=== PATIENT | female | born 1935 | race Caucasian/White ===

== ENCOUNTER 2019-06-09 17:25 | Emergency (ER) | payer MEDICARE, MEDICAID ==
[2019-06-09] MEDS ORDERED: Adacel (T-DAP) 0.5 ML SYRINGE ONE (17:44)
[2019-06-09 17:56] LABS: #Eosinphils 0.2 thou/uL (0.0-0.7); #Lymphocytes 0.9 thou/uL (1.20-3.40); #Monocytes 0.4 thou/uL (0.11-0.59); #Neutrophils 4.1 thou/uL (1.40-6.50); %Basophils 0.1 % (0.0-1.0); %Lymphocytes 16.3 % (21.0-51.0); %Monocytes 7.2 % (0.0-10.0); %Neutrophils 73.3 % (42.0-75.0); Hemoglobin 12.4 g/dL (12.0-16.0); Mean Corpuscular HGB CONC 31.7 g/dL (32.0-36.0); Mean Corpuscular Hemoglobin 27.2 pg (27.0-31.0); Mean Corpuscular Volume 85.7 fL (78.0-98.0); Mean Platelet Volume 8.6 fL (7.4-10.4); Platelet Count 227 thou/uL (130-400); RBC Distribution Width 13.6 % (11.5-14.5); Red Blood Cell (RBC) Count 4.56 mill/uL (4.20-5.40); White Blood Cell (WBC) Count 5.6 thou/uL (4.8-10.8)
--- NOTE | 2019-06-09 18:04 | CT ---
Head CT without contrast 06/09/2019: HISTORY: Fall, trauma, pain TECHNIQUE: Axial CT imaging at 5 mm intervals from vertex through skull base without contrast FINDINGS: The imaged paranasal sinuses and mastoid air cells are well aerated. No displaced calvarial fracture. Mild diffuse cerebral volume loss. No intracranial hemorrhage, midline shift, mass effect, or ventricular enlargement. IMPRESSION: No intracranial hemorrhage or displaced calvarial fracture. Results called to Dr. Reddy at approximately 6:05 PM 06/09/2019.
--- NOTE | 2019-06-09 18:12 | CT ---
CT of cervical spine without contrast: 06/09/2019 COMPARISON: None HISTORY: Injury, trauma, pain TECHNIQUE: Axial CT imaging is obtained at 2.5 mm intervals from skull base through lung apices witho ut contrast. Coronal and sagittal reformatted imaging obtained. FINDINGS: There is a nodule in the medial aspect of the left lung apex measuring approximately 10 mm in AP dimension. Nonemergent follow-up chest CT is recommended. There is prominent degenerative change at the atlantoaxial interspace. The occipital condyles appear intact. No evidence for an acute fracture of the dens. The C1-2 articul ation appears within normal limits. There is multilevel bilateral facet and uncovertebral osteophyte formation within the cervical spine. The C1 ring is intact. There is an age-indeterminate mild superior endplate fracture involving the C7 vertebral body. There is age indeterminant mild superior endplate fracture of T3. There is an anterior wedge compression fracture of T2, age indeterminant as well, with approximately 70% loss of vertebral body height anter iorly. IMPRESSION: Age indeterminant fractures as detailed above. Pulmonary nodule within left lung apex for which follow-up chest CT is advised. Results discussed with Dr. Reddy at approximately 6:08 PM 06/09/2019
[2019-06-09 18:14] LABS: Anion Gap 10 mmol/L (10-20); BUN (Urea Nitrogen) 18 mg/dL (9.8-20.1); Calc. Creatinine Clearance 0 mL/min (70-130); Calcium 10.5 mg/dL (7.8-10.44); Carbon Dioxide 31 mmol/L (23-31); Chloride 104 mmol/L (98-107); Estimated GFR-MDRD 71; Glucose 108 mg/dL (83-110); Potassium 3.2 mmol/L (3.5-5.1); Sodium 142 mmol/L (136-145)
--- NOTE | 2019-06-09 18:57 | RAD ---
RIGHT HAND THREE VIEWS: History: Fall with injury to hand. FINDINGS: There is osteopenia. 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 Carpals appear intact with no definite fracture identified. The metacarpals and phalanges appear intact. DJD is seen at the MCP and IP joints. IMPRESSION: No acute fracture identified. POS: AGW
[2019-06-09] MEDS ORDERED: Lidocaine 1% w/Epinephrine 1:100K 20 ML VIAL ONE (18:59)
[2019-06-09 19:07] LABS: Bilirubin Negative (Negative); Blood, Urine Negative (Negative); Clarity Clear (Clear); Glucose, Urine (Dipstick) Normal (Negative); Leukocyte Negative Leu/uL (Negative); Nitrite Negative (Negative); Protein, Urine (Dipstick) Negative (Neg-Trace); Urobilinogen 3 mg/dL (Less than 2)
== END 2019-06-09 22:45 ==
LOC: ERS 17:25
DX: S01.01XA Laceration without foreign body of scalp, initial encounter (principal); S60.011A Contusion of right thumb without damage to nail, initial encounter; E03.9 Hypothyroidism, unspecified; I10 Essential (primary) hypertension; J44.9 Chronic obstructive pulmonary disease, unspecified; K21.9 Gastro-esophageal reflux disease without esophagitis; F03.90 Unspecified dementia, unspecified severity, without behavioral disturbance, psychotic disturbance, mood disturbance, and anxiety; F32.9 Major depressive disorder, single episode, unspecified; Z79.899 Other long term (current) drug therapy; Z23 Encounter for immunization; W06.XXXA Fall from bed, initial encounter
CPT/HCPCS: 12002; 51701; 70450; 72125; 80048; 81003; 85025; 90471; 90715; 93005; J2001